=== PATIENT | female | born 2005 | race Caucasian/White ===

== ENCOUNTER → 2024-01-25 11:16 | Outpatient (BNVA) | payer OTHER, SELFPAY | PROVIDERS: PCP Family Medicine; Visit Provider Nurse Practitioner Family | DX: Z13.6 Encounter for screening for cardiovascular disorders (principal); R11.0 Nausea; Z79.899 Other long term (current) drug therapy; E16.2 Hypoglycemia, unspecified | CPT/HCPCS: 80053; 80061; 81003; 83036; 84439; 84443; 85025 ==

== ENCOUNTER 2025-06-26 16:44 | Emergency (ER) | payer OTHER, SELFPAY ==
[2025-06-26 16:47] VITALS: BP 142/77; PULSE 110; TEMP 37; O2SAT 98
--- OUTSIDE RECORDS SUMMARY | 2025-06-26 16:51 | XMS_ITS | Clinical Summary ---
Author Organization [facility] Address [address] [address] Phone Care Team Providers Care Tool And Gauge Inspector Name Role Phone Russell Ziyad Laith Primary Care Provider [phone] Allergies No known active allergies Medications No known medications Social History Tobacco Use Types Packs/Day Years Used Date Smoking Tobacco: Never Smokeless Tobacco: Never Tobacco Cessation:Counseling Given: Not Answered Comments Unknown Sex and Gender Information Value Date Recorded Sex Assigned at Not on file Legal Sex Female 11:34 AM CDT Gender Identity Not on file Sexual Orientation Not on file Last Filed Vital Signs Vital Sign Reading Time Taken Comments Blood Pressure 123/88 03/21/2024 1:16 PM CDT Pulse 66 03/21/2024 1:16 PM CDT Temperature 36.8 C (98.3 F) 03/21/2024 11:02 AM CDT Respiratory Rate 18 03/21/2024 1:16 PM CDT Oxygen Saturation 98% 03/21/2024 1:16 PM CDT Inhaled Oxygen Concentration - - Weight 95.1 kg (209 lb 10.5 oz) 024 11:02 AM CDT Height 175.3 cm (5' 9 ) 03/21/2024 11:0 2 AM CDT Body Mass Index 30.96 03/21/2024 11:02 AM CDT Plan of Treatment Health Maintenance Due Date Last Done Comments MMR Vaccines (1 of 1 - Stand kelsie series) 2004 DTaP,Tdap,and Td Vaccines (1 - Tdap) 2010 Varicella Vaccines (1 of 2 - 13+ 2-dose series) 2016 HPV Vaccines (1 - 3-dose series) 2018 Meningococcal B Vaccine (1 o f 2 - Standard) 2019 Depression Screening 2021 Social Drivers of Health (SDoH) 2021 Hepatitis B Vaccines (1 of 3 - 19+ 3-dose series) 2022 COVID-19 Vaccine (1 - 2023-2 5 season) 2024 Pap Smear 2024 Influenza Vaccine (#1) 2025 Pneumococcal Vaccine: 50+ Ye ars (1 of 1 - PCV) 2053 Zoster Vaccines (1 of 2) 2053 RSV Vaccines (1 - 1-dose 75+ series) 2078 HIB Vaccines Aged Out No longer eligi ble based on patient's age to complete this topic Hepatitis A Vaccines Aged Out No long er eligible based on patient's age to complete this topic IPV Vaccines Aged Out No longer eligi ble based on patient's age to complete this topic Meningococcal Vaccine Aged Out No juanito sukumar eligible based on patient's age to complete this topic Pneumococcal Vaccine Aged Out No long er eligible based on patient's age to complete this topic Rotavirus Vaccines Aged Out No longer eligible based on patient's age to complete this topic Insurance Care Teams Tool And Gauge Inspector Relationship Specialty Start Date End Date Ziyad Wells DO [facility] [address] [place] [id number] PCP - General Family Medicine 03/21/24
--- OUTSIDE RECORDS SUMMARY | 2025-06-26 16:51 | XMS_ITS | Clinical Summary ---
Author Organization [facility] Address [address] [facility] Attn: Epic Prelude ADT SERGIO MOSS [address] Care Team Providers Care Tug Master Name Role Phone Unavailable Primary Care Provider Unavailabl e Allergies No known active allergies Medications pantoprazole (PROTONIX) 40 mg Tablet, Delayed Release (E.C.) Take 40 mg by mouth daily. Active dicyclomine (BENTYL) 10 mg capsule Take 10 mg by mouth every 6 hours as needed. Active hydrOXYzine HCL (ATARAX) 25 mg tablet Take 25 mg by mouth every 6 hours as needed for Itching. Active ondansetron (ZOFRAN) 8 mg Tablet Take 8 mg by mouth every 8 hours as needed for Nausea/Emes is. Active citalopram (CeleXA) 20 mg tablet Take 20 mg by mouth daily at bedtime. Active loperamide (IMODIUM) 2 mg capsule Take 2 mg by mouth every 3 hours as needed for Diarrhea/Lo ose Stools. Active hyoscyamine sulfate 0.125 mg tablet Take 1 Tablet (0.125 mg) by mouth every 4 hours as needed for Spasm. 120 Tablet 1 06/12/2024 Active Active Problems Problem Noted Date Diagnosed Date Chronic diarrhea 05/16/2024 Encounters Date Type Department Care Team Description 05/09/2025 External Device Data STL ABSTRACTION Provider, Abstract 05/09/2025 External Device Data STL ABSTRACTION Provider, Abstract 04/10/2025 External Device Data STL ABSTRACTION Provider, Abstract from Last 3 Months Family History Medical History Relation Name Comments Healthy Father Hypertension Maternal Grandfather Diabetes Maternal Grandmother Healthy Mother Colon Cancer Neg Hx Relation Name Status Comments Father Alive Maternal Grandfather Alive Maternal Grandmother Mother Alive Social History Tobacco Use Types Packs/Day Years Used Date Smoking Tobacco: Never Smokeless Tobacco: Never Tobacco Cessation:Counseling Given: Not Answered Alcohol Use Standard Drinks/Week Comments Not Currently 0 (1 standard drink = 0.6 oz pur e alcohol) Adolescent Education Answer Date Record ed Getting School Help Needed Not on file 05/10 Comments Unknown Sex and Gender Information Value Date Recorded Sex Assigned at Not on file 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 Gender Identity Not on file Sexual Orientation Not on file Last Filed Vital Signs Vital Sign Reading Time Taken Comments Blood Pressure 121/77 05/16/2024 2:01 PM CDT Pulse 94 05/16/2024 2:01 PM CDT Temperature - - Respiratory Rate - - Oxygen Saturation - - Inhaled Oxygen Concentration - - Weight 84.8 kg (187 lb) 05/22/2024 2:41 PM CDT Height 175.3 cm (5' 9 ) 05/22/2024 2:41 PM CDT Body Mass Index 27.62 05/22/2024 2:41 PM CDT Plan of Treatment Health Maintenance Due Date Last Done Comments CHLAMYDIA SCREENING (ANNUAL) 11-24 YEARS 2014 HPV VACCINES (1 - 3-dose series) 2018 DTAP/TDAP/TD VACCINES (1 - Tdap) 2022 HEPATITIS B VACCINES (1 of 3 - 19+ 3-dose series) 05/2022 CERVICAL CANCER SCREENING 2024 HPV/Cotest (21-29) 2024 PAP SMEAR 2024 INFLUENZA VACCINE (#1) 2025 Insurance [facility] CHOICE [id number]
--- NOTE | 2025-06-26 18:38 | ED_ITS ---
HPI - Female Genitourinary 2 General: Chief complaint: Vaginal Bleeding Stated complaint: spotting 7 weeks preg Time Seen by Provider: 06/26/25 18:16 History of Present Illness: Patient is 19-year-old G1, P0, awaiting OB visit to establish care, LMP 06/19 however only for 3 days on light, LMP prior to this is 05/16 that was irregular menses. She has never been in the past. Today, just prior to arrival, she had a small quarter size of bright red blood per toilet paper. She does not have any pelvic pain, maybe some pressure with voiding. Denied any flank pain. No fevers. Associated symptoms: Reports abdominal pain (Suprapubic fullness); Deny nausea Related Data Previous Rx's ?Medication ?Instructions ?Recorded ondansetron HCl 4 mg tablet 4 mg PO Q8H PRN nausea and 02/23/24 vomiting #10 tabs Allergies Allergy/AdvReac Type Severity Reaction Status Date / Time No Known Allergies Allergy Verified 06/26/25 16:53 Review of Systems 2 General: Reports: 10 or more systems reviewed and unremarkable except in HPI and below Const: Denies: fever(s) or chills Eyes: Denies: change in vision or blurry vision ENMT: Denies: throat pain or mouth pain Card: Denies: chest pain or palpitations Resp: Denies: dyspnea or non-productive cough GI: Reports: abdominal pain (Suprapubic fullness); Denies: nausea or vomiting : Denies: flank pain, difficulty voiding or dysuria Musc: Denies: neck pain, back pain or extremity pain Skin/Breast: Denies: rash or erythema Psych: Denies: anxiety or depression PFSH ED 2 PFSH: Medical History (Updated 06/26/25 @ 23:18 by MITZI Morgan) Reflux gastritis Encounter for screening for cardiovascular disorders Medication management Nausea Hypoglycemia Surgical History (Updated 01/25/24 @ 10:59 by KARIME Mendoza) Hx of wisdom tooth extraction Hx of tonsillectomy Physical Exam 2 Const: COMMON NORMALS: no acute distress, average body habitus and patient oriented x3 HENMT: COMMON NORMALS: normocephalic and atraumatic HEAD & SCALP: n ormocephalic and atraumatic Eye: COMMON NORMALS: Equal, round and reactive pupils present and EOMs intact bilaterally PUPIL: Yes Equal, round and reactive pupils present Lymph: LYMPHATIC: no lymphadenopathy noted Chest: COMMONS NORMALS: normal inspection of the chest and normal palpation of entire chest wall Resp: COMMON NORMALS: normal respiratory effort, No retractions and clear to auscultation bilaterally AUSCULTATION: clear to auscultation bilaterally Cardio: COMMON NORMALS: regular rate and regular rhythm RATE: regular rate RHYTHM: regular rhythm GI: COMMON NORMALS: Normal to inspection, nondistended, normoactive bowel sounds present, Soft to palpation, non-tender and No hepatosplenomegaly present PALPATION: Yes Soft to palpation and Yes No hepatosplenomegaly present : COMMON NORMALS: Yes no CVA tenderness BLADDER/KIDNEY EXAM: Yes no CVA tenderness Back/Pelvis: COMMON NORMALS: no CVA tenderness Extremity: COMMON NORMALS: normal to inspection, full ROM and capillary refill normal Neuro: COMMON NORMALS: patient oriented x3 Psych: COMMON NORMALS: mental status grossly normal, Normal thought process present, cooperative, normal affect and speech normal SPEECH: Yes normal speech THOUGHT PROCESS: Normal thought process present Skin: COMMON NORMALS: no rashes or lesions noted and no wounds GENERAL SKIN EXAM: no rashes or lesions noted Course 2 Vital Signs: Vital signs: Vital Signs Temperature 98.6 F 06/26/25 16:47 Pulse Rate 110 H 06/26/25 16:47 Blood Pressure 123/80 06/26/25 20:01 Pulse Oximetry 95 06/26/25 20:01 Oxygen Delivery Me thod Room Air 06/26/25 16:47 [facility] - Female Medical Decision Making Patient is a 19-year-old female with minimal spotting as per toilet paper, no pelvic pain, will obtain routine testing, urine analysis and further decision- making Lab Data I reviewed the patient's lab results. 06/26/25 18:51 06/26/25 18:51 Radiology Impressions Ultrasound 06/26/25 19:15 IMPRESSION: 1. Subchorionic hematoma measures 1.8 cm x 3.6 cm x 1.1 cm, threatened miscarriage. 2. Early 1st trimester gestation at 5 weeks 4 days by mean sac diameter. 3. Intrauterine yolk sac identified. 4. pole not visualized early in the 1st trimester. COMMENTS: Close clinical follow-up. Serial serum quantitative beta hCG values today with follow-up at 48 hours. Surveillance follow-up ultrasound pelvis on a routine scheduled basis if clinically warranted. For ongoing intrauterine , routine complete ultrasound anatomic survey in the 2nd trimester is often indicated at 18-22 weeks, unless clinically warranted sooner. Laboratory Results WBC 6.89 10^3/uL (3.29-11.43) 06/26/25 18:51 RBC 4.75 10^6/uL (3.85-5.65) 06/26/25 18:51 Hgb 14.00 g/dL (11.27-16.99) 06/26/25 18:51 Hct 39.3 % (36-47) 06/26/25 18:51 MCV 82.7 fl (85-98) L 06/26/25 18:51 MCH 29.5 pg (27-33) 06/26/25 18:51 MCHC 35.6 g/dL (30-55) 06/26/25 18:51 RDW 11.9 % (12.1-15.1) L 06/26/25 18:51 Plt Count 309 10^3/cmm (157-399) 06/26/25 18:51 MPV 10.2 fL (7.4-10.4) 06/26/25 18:51 Neut % (Auto) 66.0 % 06/26/25 18:51 Lymph % (Auto) 26.1 % 06/26/25 18:51 Daniels % (Auto) 6.2 % 06/26/25 18:51 Eos % (Auto) 0.7 % 06/26/25 18:51 Baso % (Auto) 0.7 % 06/26/25 18:51 Neut # (Auto) 4.54 10^3/uL (1.8-7.7) 06/26/25 18:51 Lymph # (Auto) 1.8 10^3/uL (0.8-4.8) 06/26/25 18:51 Daniels # (Auto) 0.4 10^3/uL (0.2-0.9) 06/26/25 18:51 Eos # (Auto) 0.1 10^3/uL (0.0-0.8) 06/26/25 18:51 Baso # (Auto) 0.1 10^3/uL (0.0-0.1) 06/26/25 18:51 Nucleated RBC % (auto) 0 % 06/26/25 18:51 Nucleated RBCs # 0.0 /100WBC 06/26/25 18:51 Sodium 140 mmol/L (136-145) 06/26/25 18:51 Potassium 3.9 mmol/L (3.5-5.1) 06/26/25 18:51 Chloride 104 mmol/L (98-107) 06/26/25 18:51 Carbon Dioxide 24 mmol/L (22-29) 06/26/25 18:51 Anion Gap 15.9 (5-19) 06/26/25 18:51 BUN 8 mg/dL (6-20) 06/26/25 18:51 Creatinine 0.6 mg/dL (0.5-0.9) 06/26/25 18:51 GFR Calculation 126.2 mL/min (90-130) 06/26/25 18:51 Glucose 101 mg/dL (65-115) 06/26/25 18:51 Calculated Osmolality 288 mOsm/kg (285-295) 06/26/25 18:51 Calcium 9.5 mg/dL (8.5-10.5) 06/26/25 18:51 Total Bilirubin 0.6 mg/dL (0.15-1.2) 06/26/25 18:51 AST 9 U/L (0-32) 06/26/25 18:51 ALT 9 U/L (0-33) 06/26/25 18:51 Alkaline Phosphatase 54 U/L (35-105) 06/26/25 18:51 Total Protein 7.4 g/dL (6.6-8.7) 06/26/25 18:51 Albumin 4.7 g/dL (3.5-5.2) 06/26/25 18:51 Globulin 2.7 g/dL (1.3-4.6) 06/26/25 18:51 Ser , Semi-Qnt 4970.00 mIU/mL 06/26/25 18:51 Urine Color Yellow (Yellow) 06/26/25 18:04 Urine Appearance Clear (CLEAR) 06/26/25 18:04 Urine pH 7.0 (5-7) 06/26/25 18:04 Ur Specific Leighton 1.003 (1.005-1.030) L 06/26/25 18:04 Urine Protein Negative (Negative) 06/26/25 18:04 Urine Glucose (UA) Negative (Normal) 06/26/25 18:04 Urine Ketones Negative (Negative) 06/26/25 18:04 Urine Blood 3+ (Negative) A 06/26/25 18:04 Urine Nitrate Negative (Negative) 06/26/25 18:04 Urine Bilirubin Negative (Negative) 06/26/25 18:04 Urine Urobilinogen 0.2 mg/dL (Negative) 06/26/25 18:04 Ur Leukocyte Esterase Trace (Negative) A 06/26/25 18:04 Urine RBC 0-2 /hpf (0-2) 06/26/25 18:04 Urine WBC 0-5 /hpf (0-5) 06/26/25 18:04 Ur Squamous Epith Cells 0-5 /hpf (0-5) 06/26/25 18:04 Amorphous Sediment Not Reportable 06/26/25 18:04 Urine Bacteria None seen /hpf (NONE) 06/26/25 18:04 Hyaline Casts 0-4 /lpf H 06/26/25 18:04 Blood Type O Positive 06/26/25 18:51 Rho(D) Type Rh positive 06/26/25 18:51 No radiology studies performed this visit Discharge Plan Discharge Patient Disposition: Home Clinical Impression: Threatened , Subchorionic hemorrhage in first trimester Condition: Stable Prescriptions: No Action ondansetron HCl 4 mg tablet 4 mg PO Q8H PRN (Reason: nausea and vomiting) Qty: 10 1RF Discharge Orders: Discharge ED (Routine); Ordered 06/26/25 Ordered By: Cathleen Hahn Referrals: Lois Santana MD [Primary Care Provider, Family Practice] Mansoor Pedersen MD [Physician, HEALTH INFORMATION SPECIALIST] - 1-3 days Referral Note: repeat hcg Discharge Diet: Usual diet Discharge Activity: Limit activity as instructed Patient Instructions: Threatened Miscarriage (ED), Patient Portal & Lindy Instructions Activity Restrictions/Additional Instructions: Call your doctors office tomorrow to repeat your hCG level Pelvic rest: This means no sex, no tampons, nothing in the vagina, and no heavy lifting over a gallon of milk Drink plenty of water Print Language: Wallisian Coding Level of Care Code ED Automotive Machinist for Chg Babar
[2025-06-26 18:44] LABS: Glucose Urine UA Negative (Normal); Nitrate Urine Negative (Negative); Specific Gravity, Urine 1.003 (1.005-1.030)
[2025-06-26 18:46] LABS: Add Urine Microscopic? YES
[2025-06-26 19:15] LABS: Hematocrit 39.3 % (36-47); Hemoglobin 14.00 g/dL (11.27-16.99); Mean Corpuscular HGB Conc 35.6 g/dL (30-55); Mean Corpuscular Hemoglobin 29.5 pg (27-33); Mean Corpuscular Volume 82.7 fl (85-98); Nucleated Red Blood Cells % 0 %; Platelet Count 309 10^3/cmm (157-399); Red Blood Count 4.75 10^6/uL (3.85-5.65); White Blood Count 6.89 10^3/uL (3.29-11.43)
--- NOTE | 2025-06-26 19:15 | USR_ITS ---
PROCEDURE INFORMATION: Exam: US First Trimester, Transabdominal and US , Transvaginal Exam date and time: 06/26/2025 7:52 PM Age: 19 years old Clinical indication: Lmp or gestational age (in weeks): 5w 6d by lmp; Antepartum complications; Bleeding; ; G1-p0 with spotting; Additional info: Abdominal fullness, positive home test LABS AND CLINICAL REPORTS: Choriogonadotropin in serum (Serum HCG): 4970 mIU/mL Last menstrual period start date: 05/16/2025 Gestational age (Established): 5 w 6 d Estimated due date (Established): 02/20/2026 TECHNIQUE: Imaging protocol: Real-time transabdominal obstetrical ultrasound of the maternal pelvis and a first trimester , less than 14 weeks 0 days, with image documentation. Transvaginal imaging was used for better evaluation of the fetus, adnexa, and/or cervix. Total images: 2 COMPARISON: No relevant prior studies available. FINDINGS: GESTATION: Gestation: Intrauterine gestation is visualized. No pole is visualized. Yolk sac is visualized. Embryo/ cardiac activity (BPM): Not appreciated. Extra-embryonic membranes/Placenta: Subchorionic hematoma measures 1.8 cm x 3.6 cm x 1.1 cm. Amniotic/Chorionic fluid: Amniotic and extra-amniotic fluid are normal for gestational age. BIOMETRY: Gestational age (AUA): 5 w 4 d Estimated due date (AUA): 02/22/2026 Mean sac diameter: 0.78 cm. EGA (MSD) is 5 w 4 d MATERNAL: Uterus: Uterus measures 7.37 cm x 6.01 cm x 4.33 cm. Uterus demonstrates heterogeneous myometrial echotexture. Cervix: Unremarkable. Endocervical canal is closed. Right ovary/adnexa: Right ovary measures 4.4 cm x 2.3 cm x 2.5 cm. Right ovarian volume is 13.11 mL. Few right ovarian follicles. Left ovary/adnexa: Left ovary measures 3.5 cm x 2.3 cm x 2.5 cm. Left ovarian volume is 13.1 mL. Intraperitoneal space: No intraperitoneal free fluid. US/US OB <= 14 weeks fetus [id number] IMPRESSION: 1. Subchorionic hematoma measures 1.8 cm x 3.6 cm x 1.1 cm, threatened miscarriage. 2. Early 1st trimester gestation at 5 weeks 4 days by mean sac diameter. 3. Intrauterine yolk sac identified. 4. pole not visualized early in the 1st trimester. COMMENTS: Close clinical follow-up. Serial serum quantitative beta hCG values today with follow-up at 48 hours. Surveillance follow-up ultrasound pelvis on a routine scheduled basis if clinically warranted. For ongoing intrauterine , routine complete ultrasound anatomic survey in the 2nd trimester is often indicated at 18-22 weeks, unless clinically warranted sooner.
[2025-06-26 19:36] VITALS: BP 118/84; O2SAT 98
[2025-06-26 19:40] LABS: Alanine Aminotransferase 9 U/L (0-33); Albumin Level 4.7 g/dL (3.5-5.2); Alkaline Phosphatase 54 U/L (35-105); Anion Gap 15.9 (5-19); Aspartate Amino Transferase 9 U/L (0-32); Blood Urea Nitrogen 8 mg/dL (6-20); Calcium 9.5 mg/dL (8.5-10.5); Carbon Dioxide 24 mmol/L (22-29); Chloride 104 mmol/L (98-107); Creatinine Clr Calc Pharmacy 154.6012; Globulin 2.7 g/dL (1.3-4.6); Glucose 101 mg/dL (65-115); Osmolality Calculated 288 mOsm/kg (285-295); Potassium 3.9 mmol/L (3.5-5.1); Sodium 140 mmol/L (136-145); Total Protein 7.4 g/dL (6.6-8.7)
[2025-06-26 20:01] VITALS: BP 123/80; O2SAT 95
== END 2025-06-26 21:38 | disposition home or self-care (01) ==
PROVIDERS: Emergency Provider Physician Assistant; PCP Family Medicine
DX: O20.0 Threatened abortion (principal); O20.8 Other hemorrhage in early pregnancy; Z3A.01 Less than 8 weeks gestation of pregnancy
CPT/HCPCS: 36415; 76801; 80053; 81001; 84702; 85025; 86900; 87086; 99284

== ENCOUNTER → 2025-06-28 14:16 | Outpatient (BNVA) | payer OTHER, SELFPAY | PROVIDERS: Visit Provider Nurse Practitioner Women's Health | DX: O26.891 Other specified pregnancy related conditions, first trimester (principal); Z3A.01 Less than 8 weeks gestation of pregnancy | CPT/HCPCS: 76817 ==

== ENCOUNTER 2025-07-05 09:51 | Emergency (ER) | payer OTHER, SELFPAY ==
--- OUTSIDE RECORDS SUMMARY | 2025-07-05 09:58 | XMS_ITS | Clinical Summary ---
Author Organization [facility] Address [address] [address] Phone Care Team Providers Care Manager Hospital Name Role Phone Russell Ziyad Laith Primary Care Provider [phone] Allergies No known active allergies Medications No [...] of 3 - 19+ 3-dose series) 2022 Pap Smear 2024 COVID-19 Vaccine (1 - 2023-2 5 season) 2025 Influenza Vaccine (#1) 2025 Pneumococcal Vaccine: 50+ [...] to complete this topic Insurance Care Teams Manager Hospital Relationship Specialty Start Date End Date Ziyad Wells DO [facility] [address] [place] [id number] PCP - General Family Medicine 03/21/24
--- OUTSIDE RECORDS SUMMARY | 2025-07-05 09:58 | XMS_ITS | Encounter Summary ---
Author Organization [facility] Address [address] [place] [address] Care Team Providers Care Through Operator Name Role Phone Unavailable Primary Care Provider Unavailabl e Reason for Visit * Reason Onset Date Comments Decreased Appetite 07/03/2025 Encounter Details Date Type Department Care Team (Late st Contact Info) Description 07/03/2025 Telephone [facility] Gastroenterology [facility] [address] [facility] [address] [place] [address] Viviana Cortes RN Decreased Appetite Social History Tobacco Use Types Packs/Day Years Used Date Smoking Tobacco: Never Smokeless Tobacco: Never Alcohol Use Standard Drinks/Week Comments Not Currently 0 (1 standard drink = 0.6 oz pur e alcohol) Adolescent Education Answer Date Record ed Getting School Help Needed Not on file 05/10 Comments Unknown Sex and Gender Information Value Date Recorded Sex Assigned at Not on file 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 Resendez or PA for daughter d/t continued GI symptoms including decreased appetite, n/v, and abdominal pain. RN scheduled pt for next available f/u appt w/ Dr. Resendez--07/10/25. RN reviewed all appt details w/ pt's mother and explained that all details will be visible on pt's [facility] account. All questions answered, pt's mother verbalized understanding to all. documented in this encounter Plan of Treatment Upcoming Encounters Date Type Department Care Team (Late st Contact Info) Description 07/10/2025 1:00 PM CDT Office Visit [facility] Gastroenterology [place] [address] [place] [address] Kevin Resendez MD [address] [facility] [address] [place] [address] documented as of this encounter Visit Diagnoses Not on filedocumented in this encounter
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
[2025-07-05 10:23] VITALS: BP 132/72; PULSE 85; RESP 17; TEMP 36.6; O2SAT 98; BMI 20.7
[2025-07-05 10:30] LABS: Hematocrit 40.5 % (36-47); Hemoglobin 14.40 g/dL (11.27-16.99); Mean Corpuscular HGB Conc 35.6 g/dL (30-55); Mean Corpuscular Hemoglobin 29.4 pg (27-33); Mean Corpuscular Volume 82.7 fl (85-98); Nucleated Red Blood Cells % 0 %; Platelet Count 276 10^3/cmm (157-399); Red Blood Count 4.90 10^6/uL (3.85-5.65); White Blood Count 7.58 10^3/uL (3.29-11.43)
[2025-07-05 10:43] LABS: Glucose Urine UA Negative (Normal); Nitrate Urine Negative (Negative); Specific Gravity, Urine 1.029 (1.005-1.030)
--- NOTE | 2025-07-05 10:45 | W.ED.PREGNAN ---
HPI - General: Chief complaint: Vaginal Bleeding Stated complaint: Abd pain/ spotting ([id number]) Time Seen by Provider: 07/05/25 09:54 History of Present Illness: 20-year-old female presents emergency room reports she is approximately 8 weeks gestation she usually sees Dr. Pedersen overnight she began having cramping and bleeding cramping is resolved but she has bleeding whenever she goes to the restroom. 2 weeks ago she had a little spotting she noticed when she wiped. No fever sweats chills denies dysuria urgency or frequency. Previous ultrasound confirmed intrauterine at 6 weeks gestation at there is a small fluid collection between the posterior wall of the gestational sac and the uterine wall thought to be a subchorionic hemorrhage. Associated symptoms: Deny abdominal pain or dysuria Related Data Home Medications ?Medication ?Instructions ?Recorded ?Confirmed vitamins no.102-iron 90 1 cap PO DAILY 06/28/25 06/28/25 mg-folate 1 mg-dha 200 mg capsule Previous Rx's ?Medication ?Instructions ?Recorded sertraline 25 mg tablet 25 mg PO DAILY #30 tabs 06/29/25 cephalexin 500 mg capsule 500 mg PO TID 7 days #21 caps 07/05/25 Allergies Allergy/AdvReac Type Severity Reaction Status Date / Time No Known Allergies Allergy Verified 06/28/25 13:54 Review of Systems Const: Denies: fever(s) or chills Card: Denies: chest pain Resp: Denies: dyspnea GI: Denies: abdominal pain : Reports: vaginal bleeding; Denies: dysuria, urinary frequency or urinary urgency Musc: Denies: neck pain or back pain Skin/Breast: Denies: rash PFS ED PFSH: Medical History No pertinent past medical history neghx: htn, dm, thyroid, dvt/pe PCP: None Reflux gastritis Encounter for screening for cardiovascular disorders Medication management Nausea Hypoglycemia Surgical History Hx of wisdom tooth extraction Hx of tonsillectomy Social History Smoking and tobacco/nicotine status: never used tobacco/nicotine Physical Exam Const: GENERAL APPEARANCE: cooperative ORIENTATION/CONSCIOUSNESS: Yes awake, Yes oriented to person, Yes oriented to place and Yes oriented to time HENMT: COMMON NORMALS: normocephalic, atraumatic and hearing grossly normal bilaterally HEAD & SCALP: normocephalic and atraumatic Resp: COMMON NORMALS: normal respiratory effort, No retractions, No use of accessory muscles and clear to auscultation bilaterally AUSCULTATION: clear to auscultation bilaterally Cardio: COMMON NORMALS: regular rate, regular rhythm and No murmurs present (Cardio) RATE: regular rate RHYTHM: regular rhythm GI: COMMON NORMALS: Soft to palpation and No hepatosplenomegaly present AUSCULTATION: Yes normoactive bowel sounds PALPATION: Yes Soft to palpation, No Tenderness to palpation present (GI), No Guarding due to palpation present (GI) and Yes No hepatosplenomegaly present Extremity: COMMON NORMALS: normal to inspection, capillary refill normal, no clubbing, cyanosis or edema, no calf tenderness and no pedal edema Neuro: SENSORIUM/ORIENTATION: Yes oriented to person, Yes oriented to place and Yes oriented to time Skin: COMMON NORMALS: no rashes or lesions noted GENERAL SKIN EXAM: no rashes or lesions noted Course Vital Signs: Vital signs: Vital Signs Temperature 97.8 F 07/05/25 10:23 Pulse Rate 87 07/05/25 13:31 Respiratory Rate 17 07/05/25 10:23 Blood Pressure 127/88 07/05/25 13:31 Pulse Oximetry 98 07/05/25 13:31 MDM - OB/Uterine Contractions Medical Decision Making hCG of greater than 40,000. Ultrasound shows a subchorionic hemorrhage with viable intrauterine discussed with patient. Recommend pelvic rest. Discussed with her she may have more spotting and bleeding that blotting may turn dark as well. Return if she has increased bleeding. She will follow-up with her OB within the next week Medical Records I reviewed the patient's medical records. Lab Data I reviewed the patient's lab results. 07/05/25 10:23 07/05/25 10:23 Radiology Impressions Obstetrics Ultrasound 07/05/25 11:33 IMPRESSION: 1. Single intrauterine gestation of 6w4d with an EDC of 02/24/2026. 2. Cardiac activity is noted within the pole. 3. Moderate subchorionic hemorrhage. Subchorionic hemorrhage measures 3.9 x 3.7 x 2.1 cm and does extend inferiorly over the cervical canal. Subchorionic hemorrhage is increased in size since 06/28/2025. Laboratory Results WBC 7.58 10^3/uL (3.29-11.43) 07/05/25 10:23 RBC 4.90 10^6/uL (3.85-5.65) 07/05/25 10:23 Hgb 14.40 g/dL (11.27-16.99) 07/05/25 10:23 Hct 40.5 % (36-47) 07/05/25 10:23 MCV 82.7 fl (85-98) L 07/05/25 10:23 MCH 29.4 pg (27-33) 07/05/25 10:23 MCHC 35.6 g/dL (30-55) 07/05/25 10:23 RDW 11.9 % (12.1-15.1) L 07/05/25 10:23 Plt Count 276 10^3/cmm (157-399) 07/05/25 10:23 MPV 10.1 fL (7.4-10.4) 07/05/25 10:23 Neut % (Auto) 82.0 % 07/05/25 10:23 Lymph % (Auto) 13.3 % 07/05/25 10:23 [place] % (Auto) 4.0 % 07/05/25 10:23 Eos % (Auto) 0.0 % 07/05/25 10:23 Baso % (Auto) 0.4 % 07/05/25 10:23 Neut # (Auto) 6.22 10^3/uL (1.8-7.7) 07/05/25 10:23 Lymph # (Auto) 1.0 10^3/uL (0.8-4.8) 07/05/25 10:23 [place] # (Auto) 0.3 10^3/uL (0.2-0.9) 07/05/25 10:23 Eos # (Auto) 0.0 10^3/uL (0.0-0.8) 07/05/25 10:23 Baso # (Auto) 0.0 10^3/uL (0.0-0.1) 07/05/25 10:23 Nucleated RBC % (auto) 0 % 07/05/25 10:23 Nucleated RBCs # 0.0 /100WBC 07/05/25 10:23 Sodium 140 mmol/L (136-145) 07/05/25 10:23 Potassium 4.5 mmol/L (3.5-5.1) 07/05/25 10:23 Chloride 104 mmol/L (98-107) 07/05/25 10:23 Carbon Dioxide 22 mmol/L (22-29) 07/05/25 10:23 Anion Gap 18.5 (5-19) 07/05/25 10:23 BUN 6 mg/dL (6-20) 07/05/25 10:23 Creatinine 0.5 mg/dL (0.5-0.9) 07/05/25 10:23 GFR Calculation 154.3 mL/min (90-130) H 07/05/25 10:23 Glucose 100 mg/dL (65-115) 07/05/25 10:23 Calculated Osmolality 288 mOsm/kg (285-295) 07/05/25 10:23 Calcium 10.0 mg/dL (8.5-10.5) 07/05/25 10:23 Total Bilirubin 0.7 mg/dL (0.15-1.2) 07/05/25 10:23 AST 12 U/L (0-32) 07/05/25 10:23 ALT 10 U/L (0-33) 07/05/25 10:23 Alkaline Phosphatase 52 U/L (35-105) 07/05/25 10:23 Total Protein 7.6 g/dL (6.6-8.7) 07/05/25 10:23 Albumin 4.8 g/dL (3.5-5.2) 07/05/25 10:23 Globulin 2.8 g/dL (1.3-4.6) 07/05/25 10:23 Ser , Semi-Qnt 35901.00 mIU/mL 07/05/25 10:23 Urine Color Yellow (Yellow) 07/05/25 10:23 Urine Appearance Cloudy (CLEAR) A 07/05/25 10:23 Urine pH 8.5 (5-7) A 07/05/25 10:23 Ur Specific [place] 1.029 (1.005-1.030) 07/05/25 10:23 Urine Protein 1+ (Negative) A 07/05/25 10:23 Urine Glucose (UA) Negative (Normal) 07/05/25 10:23 Urine Ketones 4+ (Negative) 07/05/25 10:23 Urine Blood Negative (Negative) 07/05/25 10:23 Urine Nitrate Negative (Negative) 07/05/25 10:23 Urine Bilirubin Negative (Negative) 07/05/25 10:23 Urine Urobilinogen 1.0 mg/dL (Negative) 07/05/25 10:23 Ur Leukocyte Esterase Trace (Negative) A 07/05/25 10:23 Urine RBC 0-2 /hpf (0-2) 07/05/25 10:23 Urine WBC 11-20 /hpf (0-5) H 07/05/25 10:23 Ur Squamous Epith Cells 0-5 /hpf (0-5) 07/05/25 10:23 Amorphous Sediment Not Reportable 07/05/25 10:23 Urine Bacteria None seen /hpf (NONE) 07/05/25 10:23 Hyaline Casts 11.57 /lpf 07/05/25 10:23 All radiology interpretation(s) finalized by discharge Discharge Plan Discharge Patient Disposition: Home Clinical Impression: Subchorionic hemorrhage in first trimester, Cystitis Condition: Stable Prescriptions: New cephalexin 500 mg capsule 500 mg PO TID 7 Days Qty: 21 0RF No Action PNV [id number] 90 mg iron- 1 mg-200 mg capsule 1 cap PO DAILY sertraline 25 mg tablet 25 mg PO DAILY Qty: 30 1RF Discharge Orders: Discharge ED (Routine); Ordered 07/05/25 Ordered By: Dylon Dorado Discharge Diet: Usual diet Discharge Activity: Resume usual activity Patient Instructions: Urinary Tract Infection in Women (ED), Subchorionic Hemorrhage (ED), Opioid Safety, Pain Management, Patient Portal & [place] Instructions Activity Restrictions/Additional Instructions: Thank you for choosing [facility] for your healthcare needs today. It is very important that you follow up as instructed or that you return to the Emergency Department should you have concerns or if your condition changes or worsens in any way. Emergency department visits are focused on emergent conditions, in some cases you may require further evaluation on an outpatient basis. You are seen in the emergency room with a complaint of vaginal bleeding. On ultrasound showed you had a small subchorionic hemorrhage. These are very common during first trimester and usually resolve on their own. It is not unusual for you to continue with some intermittent spotting the blood may even turn a darker color over the next few days. If the bleeding increases you should be reevaluated. We also noted an incidental finding of a mild bladder infection for which you were given oral antibiotics take 1 pill 3 times a day for 7 days (Please note that included in your discharge packet is information concerning opioid safety and pain management. This information is given to all patients were discharged from the ER regardless of their discharge diagnosis or the medicines they usually take or are prescribed.) Print Language: Croatian Coding Level of Care Code ED Derrick Boat Leverman for Jimena Eckert
[2025-07-05 10:48] LABS: Add Urine Microscopic? YES
[2025-07-05 10:54] LABS: UA Slide Review UA Slide Review Perf
[2025-07-05 11:32] LABS: Alanine Aminotransferase 10 U/L (0-33); Albumin Level 4.8 g/dL (3.5-5.2); Alkaline Phosphatase 52 U/L (35-105); Anion Gap 18.5 (5-19); Aspartate Amino Transferase 12 U/L (0-32); Blood Urea Nitrogen 6 mg/dL (6-20); Calcium 10.0 mg/dL (8.5-10.5); Carbon Dioxide 22 mmol/L (22-29); Chloride 104 mmol/L (98-107); Creatinine Clr Calc Pharmacy 181.4349; Globulin 2.8 g/dL (1.3-4.6); Glucose 100 mg/dL (65-115); Osmolality Calculated 288 mOsm/kg (285-295); Potassium 4.5 mmol/L (3.5-5.1); Sodium 140 mmol/L (136-145); Total Protein 7.6 g/dL (6.6-8.7)
--- NOTE | 2025-07-05 11:33 | US_ITS ---
WS: [id number] EARLY OBSTETRICAL ULTRASOUND (<14 WEEKS). HISTORY: First trimester vaginal bleeding COMPARISON: 06/28/2025, 06/26/2025 Single intrauterine gestational sac is identified. Cardiac activity at 173 BPM. [place]-rump length measures 0.7 cm which corresponds to a gestation of 6w4d. Normal-appearing yolk sac and amnion demonstrated. Large subchorionic hemorrhage. Subchorionic hemorrhage extends along the posterior and inferior gestational sac. Largest diameter is 3.9 x 3.7 x 2.1 cm. Hemorrhage extends inferiorly over the cervical canal. No free fluid in the pelvis. US/US OB <=14 wk fetus w transvag IMPRESSION: 1. Single intrauterine gestation of 6w4d with an EDC of 02/24/2026. 2. Cardiac activity is noted within the pole. 3. Moderate subchorionic hemorrhage. Subchorionic hemorrhage measures 3.9 x 3. 7 x 2.1 cm and does extend inferiorly over the cervical canal. Subchorionic hem orrhage is increased in size since 06/28/2025.
[2025-07-05 13:31] VITALS: BP 127/88; PULSE 87; O2SAT 98
== END 2025-07-05 13:31 | disposition home or self-care (01) ==
PROVIDERS: Emergency Provider Family Medicine
DX: O20.8 Other hemorrhage in early pregnancy (principal); O23.11 Infections of bladder in pregnancy, first trimester; Z3A.08 8 weeks gestation of pregnancy
CPT/HCPCS: 36415; 76801; 76817; 80053; 81001; 84702; 85025; 99284

== ENCOUNTER → 2025-07-19 14:37 | Outpatient (BNVA) | payer OTHER, SELFPAY | PROVIDERS: Visit Provider Nurse Practitioner Women's Health | DX: Z34.90 Encounter for supervision of normal pregnancy, unspecified, unspecified trimester (principal) | CPT/HCPCS: 81000 ==

== ENCOUNTER 2025-07-20 10:06 | Outpatient (CLI) | payer OTHER, SELFPAY ==
--- NOTE | 2025-07-20 10:15 | US_ITS ---
WS: [id number] EARLY OBSTETRICAL ULTRASOUND (<14 WEEKS). HISTORY: O20.0 - Threatened COMPARISON: 07/05/2025, 06/28/2025 Single intrauterine gestational sac is identified. Cardiac activity at 167 BPM. [place]-rump length measures 2.0 cm which corresponds to a gestation of 8w4d. Normal-appearing yolk sac and amnion demonstrated. Large subchorionic hemorrhage. Previously described subchorionic hemorrhage now measures 5.4 x 3.5 x 4.7 cm and is increased in size. Lacy reticulations consistent with hemorrhagic components. Subchorionic hemorrhage encasing the gestational sac by just under 50% by estimation. No free fluid. LEFT ovary measures 3.2 x 2.6 x 2.5 cm. LEFT ovary is very slightly enlarged and may contain a corpus luteum of . Normal vascularity. US/US OB <=14 wk fetus w transvag IMPRESSION: 1. Single intrauterine gestation of 8w4d with an EDC of 02/25/2026. Appropriat e growth since the prior ultrasound. 2. Large subchorionic hemorrhage has increased in size since 07/05/2025. Hemorr jeb now measures 5.4 x 3.5 x 4.7 cm as compared to 3.9 x 3.7 x 2.1 cm. 3. Normal cardiac activity.
== END 2025-07-20 10:07 | disposition home or self-care (01) ==
LOC: RAD 10:10
PROVIDERS: Visit Provider Obstetrics & Gynecology
DX: O20.0 Threatened abortion (principal)
CPT/HCPCS: 76801; 76817

== ENCOUNTER → 2025-08-09 15:02 | Outpatient (BNVA) | payer OTHER, SELFPAY | PROVIDERS: Visit Provider Obstetrics & Gynecology | DX: Z34.90 Encounter for supervision of normal pregnancy, unspecified, unspecified trimester (principal) | CPT/HCPCS: 88175 ==

== ENCOUNTER → 2025-08-14 14:09 | Outpatient (BNVA) | payer OTHER, SELFPAY | PROVIDERS: Visit Provider Nurse Practitioner Women's Health | DX: Z34.00 Encounter for supervision of normal first pregnancy, unspecified trimester (principal) | CPT/HCPCS: 80307; 84443; 85025; 86592; 86762; 86803; 87086; 87340; 87491; 87591; 87661; 87806 ==

== ENCOUNTER 2025-08-17 11:08 | Outpatient (CLI) | payer OTHER, SELFPAY ==
--- NOTE | 2025-08-17 11:30 | US_ITS ---
WS: [id number] EARLY OBSTETRICAL ULTRASOUND (<14 WEEKS). HISTORY: O20.8 - Other hemorrhage in early COMPARISON: 07/20/2025, 07/05/2025, 06/28/2025 Single intrauterine gestational sac is identified. Cardiac activity at 159 BPM. [place]-rump length measures 6.9 cm which corresponds to a gestation of 13w1d. Normal-appearing yolk sac and amnion demonstrated. Small residual subchorionic hemorrhage. Subchorionic hemorrhage with interval decrease in size. Hemorrhage around the RIGHT lateral gestational sac measures 3.8 x 4.1 x 1.6 cm as compared to 3.9 x 3.7 x 2.1 cm. No free fluid. Negative adnexa. US/US OB <= 14 weeks fetus [id number] IMPRESSION: 1. Single intrauterine gestation of 13w1d with an EDC of 02/21/2026. Appropria te growth of the fetus since the first trimester ultrasound. 2. Interval decrease in size of the previously described large subchorionic he morrhage. Hemorrhage now measures 3.8 x 4.1 x 1.6 cm.
== END 2025-08-17 11:09 | disposition home or self-care (01) ==
LOC: RAD 11:09
PROVIDERS: PCP Nurse Practitioner Women's Health; Visit Provider Nurse Practitioner Women's Health
DX: O20.8 Other hemorrhage in early pregnancy (principal); Z3A.13 13 weeks gestation of pregnancy
CPT/HCPCS: 76801

== ENCOUNTER → 2025-09-06 13:26 | Outpatient (BNVA) | payer OTHER, SELFPAY | PROVIDERS: PCP Nurse Practitioner Women's Health; Visit Provider Nurse Practitioner Women's Health | DX: O20.8 Other hemorrhage in early pregnancy (principal) | CPT/HCPCS: 82105; 84315 ==

== ENCOUNTER → 2025-10-24 15:43 | Outpatient (BNVA) | payer MEDICAID, SELFPAY | PROVIDERS: Visit Provider Obstetrics & Gynecology | DX: Z34.90 Encounter for supervision of normal pregnancy, unspecified, unspecified trimester (principal) | CPT/HCPCS: 84315 ==